=== PATIENT | female | born 1990 | race American Indian/Alaskan Native ===

== ENCOUNTER 2016-11-02 21:36 | Inpatient (IN) | payer OTHER ==
[2016-11-02 23:04] LABS: Urine Drugs of Abuse Note Disclamer
[2016-11-02 23:16] LABS: Bilirubin,Urine NEG (Negative); Blood,Urine NEG (Negative); Ketones,Urine TR mg/dL (Negative); Leukocyte Esterase,Urine NEG (Negative); Mucus,Urine FEW /HPF; Nitrite,Urine POS (Negative); Protein,Urine <15 mg/dL mg/dL (Negative)
[2016-11-03] MEDS ORDERED: LACTATED RINGERS 1,000 ML ONE (01:49)
[2016-11-03] MEDS ORDERED: COLACE PO PRN (02:15)
[2016-11-03] MEDS ORDERED: BENADRYL PO PRN (02:28)
[2016-11-03] MEDS ORDERED: ROBITUSSIN DM PO PRN (02:28)
[2016-11-03] MEDS ORDERED: MILK OF MAGNESIA PO PRN (02:28)
[2016-11-03] MEDS ORDERED: MYLICON PO PRN (02:28)
[2016-11-03] MEDS ORDERED: SUDAFED PO PRN (02:28)
[2016-11-03] MEDS ORDERED: ALUM-MAG HYDROX-SIMETH 200-200-20MG/5ML PO PRN (02:28)
[2016-11-03] MEDS ORDERED: DEEP SEA NS PRN (02:28)
[2016-11-03] MEDS ORDERED: ZOFRAN IV PRN (02:28)
--- NOTE | 2016-11-03 02:48 | History and Physical Report ---
History of Present Illness Date of examination: 11/03/16 Date of admission: 11/03/16 02:01 Chief complaint: Contractions, back pain, cough History of present illness: This is a 26-year-old female 4 para 11/22/2000 who presented to [address] [place] [address] complaining of contractions, back pain, coughing and general body aches and leaking fluid. She has an intrauterine at 38 weeks and 1 day by an ultrasound performed July 29, 2016 at 24 weeks and 2 days. She has not received any care with this . She was recently evaluated 10/21/2016 for back pain and contractions. She was not dilated and allow home at that time. On arrival to night patient had irregular contractions her cervix was closed. Patient states she felt that her water broke earlier yesterday as well as she started coughing yesterday. She felt she had a subjective fever but did not take her temperature. She denies any dysuria or problems urinating. Speculum exam in triage tonight was negative for pooling and ferning. She had prolonged monitoring triage and had no change from her cervical exam. Lab results revealed positive nitrites. Patient is admitted now for treatment of pyelonephritis. Past History Past Medical History: no pertinent history Past Surgical History: no surgical history LABOR AND DELIVERY REGISTERED NURSE History: denies: chlamydia, gonorrhea, hepatitis B, hepatitis C, herpes, HIV , syphilis, trichomonas Social history: full code. denies: smoking, alcohol abuse, prescription drug abuse, IV drug use - Obstetrical History Expected Date of Delivery: 11/16/16 Actual Gestation: 38 Week(s) 1 Day(s) : 4 (all ) Para: 3 Hx # Term Pregnancies: 2 Number of Pregnancies: 1 Number of Living Children: 3 Medications and Allergies Allergies Allergy/AdvReac Type Severity Reaction Status Date / Time No Known Allergies Allergy Verified 03/04/14 22:00 Home Medications Medication Instructions Recorded Confirmed Last Taken Type Nitrofurantoin Starke/M-Cryst 100 mg PO Q12HR #14 capsule 10/10/14 10/21/16 Unknown Rx [Macrobid] Nitrofurantoin Starke/M-Cryst 100 mg PO Q12HR #14 capsule 11/03/16 Unknown Rx [Macrobid CAP] Active Meds: Active Medications Nitrofurantoin Macrocrystals (Macrobid) 100 mg PO Q12HR EDMOND Review of Systems All systems: negative Constitutional: malaise Respiratory: cough Gastrointestinal: diarrhea Genitourinary: leakage of fluid, pelvic pain, contractions Musculoskeletal: low back pain Psychiatric: anxiety - Vital Signs Vital signs: Vital Signs Pulse BP Pulse Ox 117 H 120/64 97 11/02/16 21:55 11/02/16 21:55 11/02/16 21:55 Temp Pulse Resp BP Pulse Ox 91 H 134/69 98 11/03/16 02:03 11/03/16 02:03 11/03/16 02:03 - Physical Exam Breasts: Positive: deferred Lungs: Positive: Clear to auscultation, Normal air movement Abdomen: Positive: normal appearance. Negative: tenderness Genitourinary (Female): Positive: normal external genitalia, normal perenium Vulva: both: normal (once patient was placed in LDR 7 she again complained of leaking fluid. Sterile spec exam was again negative for any pooling. ) Vagina: Positive: normal moisture Uterus: Positive: enlarged Anus/Rectum: Positive: normal perianal skin Extremities: Positive: normal. Negative: tenderness, edema Deep Tendon Reflex Grade: Normal +2 - Obstetrical FHR: category 1 Uterine Contraction Monitor Mode: External Cervical Dilatation: 0 Cervical Effacement Percentage: 0 station: -2 Uterine Contraction Pattern: Irregular Results All other labs normal. Assessment and Plan - Patient Problems (1) 38 weeks gestation of Current Visit: Yes Status: Acute (2) No care in current Current Visit: Yes Status: Acute (3) Pyelonephritis affecting in third trimester Current Visit: Yes Status: Acute Plan to address problem: With fever and positive nitrites and urine most likely diagnosis is pyelonephritis. There is no obvious evidence of chorioamnionitis. We'll start Rocephin and IV hydration. Continuous monitoring. (4) Cough Current Visit: Yes Status: Acute Plan to address problem: Chest x-ray today.
[2016-11-03] MEDS: TYLENOL PO PRN ×2 (02:56→22:36)
[2016-11-03] MEDS ORDERED: MORPHINE IV ONE (02:57)
[2016-11-03] MEDS ORDERED: NACL 0.9% 1000 ML 1,000 ML IV SCH (03:00)
[2016-11-03] MEDS: AMBIEN PO PRN ×2 (03:15→22:37)
[2016-11-03] MEDS: ROCEPHIN/NS 1 GM/50 ML 50 ML IV SCH ×2 (04:20→14:24)
[2016-11-03 04:21] LABS: Basophils % (Auto) 0.3 % (0.0-1.8); Eosinophils % (Auto) 0.4 % (0.0-4.3); Hematocrit 26.5 % (30.3-42.9); Hemoglobin 8.6 gm/dl (10.1-14.3); Mean Corpuscular HGB Conc 32 % (30-34); Mean Corpuscular Hemoglobin 27 pg (28-32); Mean Corpuscular Volume 83 fl (79-97); Platelet Count 144 K/mm3 (140-440); Red Blood Count 3.21 M/mm3 (3.65-5.03); Red Cell Distribution Width 15.2 % (13.2-15.2); White Blood Count 8.7 K/mm3 (4.5-11.0)
[2016-11-03] MEDS: MACROBID PO SCH ×2 (04:23→16:00)
[2016-11-03 06:17] LABS: HIV-1 Antigen p24 Non React (Non React); HIVR-1/2 Ab Non React (Non React)
[2016-11-03] MEDS: STADOL IV PRN ×3 (08:03→17:35)
--- NOTE | 2016-11-03 08:30 | Admit Criteria Form ---
Admission Criteria Documentation: PYELONEPHRITIS, ACUTE Clinical Indications for Admission to Inpatient Care (Place 'X' for any and all applicable criteria): Admission is indicated for ANY ONE of the following 1,2,3,4,5 [ ]I. Outpatient treatment has failed or is not feasible (eg, multidrug- resistant organism).5 [X ]II. beyond 24 weeks' gestation6 [ ]III. Hemodynamic instability [ ]IV. Immunocompromised state (eg, AIDS, diabetes, sickle cell disease) [ ]V. Known renal or urologic abnormalities (eg, indwelling catheter, structural abnormalities, renal calculi, urinary stent, previous urologic surgery) [ ]. Condition that requires drainage procedure, including ANY ONE of the following: [ ]a) Urinary obstruction [ ]b) Pyelitis [ ]c) Pyonephrosis [ ]d) Renal or perinephric abscess [ ]e) Emphysematous pyelonephritis 7 [ ]VII. Inpatient admission required rather than observation care (Also use Pyelonephritis, Acute: Observation Care Criteria as appropriate) because of ANY ONE of the following: [ ]a) High fever or infection requiring inpatient admission as indicated by ANY ONE of [id number] [ ]A. Documented bacteremia [ ]B. Temp>104.9 [id number] (oral) [ ]C. Temp>103.10F (oral) or <96.80F (rectal) that does not respond to all emergency treatment [ ]b) Acute renal failure [ ]c) Other significant finding or clinical condition judged not to be within the scope of observation care [ ]d) IV fluid to replace significant ongoing (eg, for over 24hrs) losses (> 3 L/m2 per day) [ ]e) Other condition,treatment or monitoring requiring inpatient admission The original [facility] content created by [employer] has been revised. The portions of the content which have been revised are identified through the use of italic text or in bold, and [facility] has neither reviewed nor approved the modified material. All other unmodified content is copyright [facility]. Please see references footnoted in the original [facility] edition 2016 Admission Criteria Met: Yes
[2016-11-03] MEDS: LACTATED RINGERS 1,000 ML IV SCH (09:00)
--- NOTE | 2016-11-03 09:18 | XRay Report ---
AP CHEST: AP view of the chest demonstrates a normal mediastinal and cardiac contour with clear lungs and normal bony and soft tissue structures. IMPRESSION: Normal AP chest.
--- NOTE | 2016-11-03 09:44 | Ultrasound Report ---
Limited OB ultrasound: There is a motta gestation in cephalic position with a heart rate of 168 beats per minute. The MORALES is 21 cm which is within normal range. The estimated gestational age is 30 weeks one day. No other information supplied.
--- NOTE | 2016-11-03 10:17 | Progress Note ---
Assessment and Plan patient resting s/p medication administration. c/o flank pain and abd pain intermittantly with ctx but denies pain between ctx. FHT CAT 1. continue current management at this time. - Patient Problems (1) 38 weeks gestation of Current Visit: Yes Status: Acute (2) No care in current Current Visit: Yes Status: Acute Qualifiers: Trimester: third trimester Qualified Code(s): O09.33 - Supervision of with insufficient care, third trimester Plan to address problem: labs drawn (3) Pyelonephritis affecting in third trimester Current Visit: Yes Status: Acute Plan to address problem: continue antibiotic (4) Cough Current Visit: Yes Status: Acute Plan to address problem: chest xray normal Subjective - Subjective Date of service: 11/03/16 Principal diagnosis: IUP @ 38w1d, no pnc, pyleo Patient reports: movement normal, contractions Objective - Vital Signs Vital Signs: Vital Signs - 12hr 11/02/16 11/02/16 11/02/16 22:15 22:20 22:25 Temperature Pulse Rate 109 H 112 H 121 H Pulse Rate [ From Monitor] Respiratory Rate Blood Pressure Blood Pressure [Right Arm] O2 Sat by Pulse 100 99 100 Oximetry 11/02/16 11/02/16 11/02/16 22:30 22:35 22:40 Temperature Pulse Rate 110 H 110 H 119 H Pulse Rate [ From Monitor] Respiratory Rate Blood Pressure Blood Pressure [Right Arm] O2 Sat by Pulse 99 100 100 Oximetry 11/02/16 11/02/16 11/02/16 22:45 22:50 22:55 Temperature Pulse Rate 112 H 106 H 112 H Pulse Rate [ From Monitor] Respiratory Rate Blood Pressure Blood Pressure [Right Arm] O2 Sat by Pulse 98 98 99 Oximetry 11/02/16 11/02/16 11/02/16 23:00 23:05 23:10 Temperature Pulse Rate 103 H 105 H 114 H Pulse Rate [ From Monitor] Respiratory Rate Blood Pressure Blood Pressure [Right Arm] O2 Sat by Pulse 97 99 100 Oximetry 11/02/16 11/02/16 11/02/16 23:14 23:15 23:20 Temperature Pulse Rate 100 H 108 H Pulse Rate [ From Monitor] Respiratory Rate Blood Pressure Blood Pressure [Right Arm] O2 Sat by Pulse 8 L 94 97 Oximetry 11/02/16 11/02/1617 23:25 23:30 23:35 Temperature Pulse Rate 112 H 108 H 110 H Pulse Rate [ From Monitor] Respiratory Rate Blood Pressure Blood Pressure [Right Arm] O2 Sat by Pulse 98 98 100 Oximetry 11/02/16 11/02/16 11/02/16 23:40 23:45 23:50 Temperature Pulse Rate 113 H 120 H 111 H Pulse Rate [ From Monitor] Respiratory Rate Blood Pressure Blood Pressure [Right Arm] O2 Sat by Pulse 98 98 99 Oximetry 11/02/16 11/03/16 11/03/16 23:55 00:00 00:05 Temperature Pulse Rate 124 H 107 H 112 H Pulse Rate [ From Monitor] Respiratory Rate Blood Pressure Blood Pressure [Right Arm] O2 Sat by Pulse 97 97 97 Oximetry 11/03/16 11/03/16 11/03/16 00:10 00:15 00:53 Temperature Pulse Rate 119 H 122 H 122 H Pulse Rate [ From Monitor] Respiratory Rate Blood Pressure Blood Pressure [Right Arm] O2 Sat by Pulse 98 97 98 Oximetry 11/03/16 11/03/16 11/03/16 00:58 01:03 01:08 Temperature Pulse Rate 118 H 108 H 108 H Pulse Rate [ From Monitor] Respiratory Rate Blood Pressure Blood Pressure [Right Arm] O2 Sat by Pulse 98 100 100 Oximetry 11/03/16 11/03/16 11/03/16 01:13 01:18 01:23 Temperature Pulse Rate 115 H 114 H 119 H Pulse Rate [ From Monitor] Respiratory Rate Blood Pressure Blood Pressure [Right Arm] O2 Sat by Pulse 100 100 100 Oximetry 11/03/16 11/03/16 11/03/16 01:28 01:33 01:38 Temperature Pulse Rate 108 H 120 H 133 H Pulse Rate [ From Monitor] Respiratory Rate Blood Pressure Blood Pressure [Right Arm] O2 Sat by Pulse 100 100 100 Oximetry 11/03/16 11/03/16 11/03/16 01:43 01:48 02:03 Temperature Pulse Rate 133 H 109 H 91 H Pulse Rate [ From Monitor] Respiratory Rate Blood Pressure 134/69 Blood Pressure [Right Arm] O2 Sat by Pulse 100 100 98 Oximetry 11/03/16 11/03/16 11/03/16 02:25 02:42 02:43 Temperature 100.0 F H Pulse Rate 114 H 126 H Pulse Rate [ 114 H From Monitor] Respiratory 22 Rate Blood Pressure 105/59 Blood Pressure 105/59 [Right Arm] O2 Sat by Pulse 92 Oximetry 11/03/16 11/03/16 11/03/16 02:48 02:49 02:53 Temperature 102.0 F H Pulse Rate 119 H 116 H 116 H Pulse Rate [ From Monitor] Respiratory Rate Blood Pressure Blood Pressure [Right Arm] O2 Sat by Pulse 96 92 89 Oximetry 11/03/16 11/03/16 11/03/16 02:56 02:58 03:03 Temperature Pulse Rate 106 H 117 H Pulse Rate [ From Monitor] Respiratory 22 Rate Blood Pressure Blood Pressure [Right Arm] O2 Sat by Pulse 97 99 Oximetry 11/03/16 11/03/16 11/03/16 03:08 03:09 03:13 Temperature Pulse Rate 111 H 111 H 112 H Pulse Rate [ From Monitor] Respiratory 20 Rate Blood Pressure 102/57 Blood Pressure [Right Arm] O2 Sat by Pulse 100 100 Oximetry 11/03/16 11/03/16 11/03/16 03:18 03:23 03:28 Temperature Pulse Rate 113 H 116 H 115 H Pulse Rate [ From Monitor] Respiratory Rate Blood Pressure Blood Pressure [Right Arm] O2 Sat by Pulse 100 100 99 Oximetry 11/03/16 11/03/16 11/03/16 03:33 03:38 03:39 Temperature Pulse Rate 115 H 110 H 110 H Pulse Rate [ From Monitor] Respiratory Rate Blood Pressure 134/60 Blood Pressure [Right Arm] O2 Sat by Pulse 98 97 Oximetry 11/03/16 11/03/16 11/03/16 03:43 03:48 03:53 Temperature Pulse Rate 120 H 124 H 122 H Pulse Rate [ From Monitor] Respiratory Rate Blood Pressure Blood Pressure [Right Arm] O2 Sat by Pulse 97 97 99 Oximetry 11/03/16 11/03/16 11/03/16 03:58 04:00 04:03 Temperature 99.8 F H Pulse Rate 116 H 120 H Pulse Rate [ From Monitor] Respiratory Rate Blood Pressure Blood Pressure [Right Arm] O2 Sat by Pulse 99 99 Oximetry 11/03/16 11/03/16 11/03/16 04:08 04:13 04:18 Temperature Pulse Rate 120 H 115 H 103 H Pulse Rate [ From Monitor] Respiratory Rate Blood Pressure Blood Pressure [Right Arm] O2 Sat by Pulse 98 98 97 Oximetry 11/03/16 11/03/16 11/03/16 04:23 04:28 04:33 Temperature Pulse Rate 122 H 113 H 121 H Pulse Rate [ From Monitor] Respiratory Rate Blood Pressure Blood Pressure [Right Arm] O2 Sat by Pulse 97 97 97 Oximetry 11/03/16 11/03/16 11/03/16 04:38 04:43 04:48 Temperature Pulse Rate 120 H 122 H 120 H Pulse Rate [ From Monitor] Respiratory Rate Blood Pressure 99/56 Blood Pressure [Right Arm] O2 Sat by Pulse 97 97 97 Oximetry 11/03/16 11/03/16 11/03/16 04:53 04:59 05:04 Temperature Pulse Rate 117 H 130 H 122 H Pulse Rate [ From Monitor] Respiratory Rate Blood Pressure Blood Pressure [Right Arm] O2 Sat by Pulse 97 96 96 Oximetry 11/03/16 11/03/16 11/03/16 05:09 05:14 05:15 Temperature 98.8 F Pulse Rate 115 H 114 H Pulse Rate [ From Monitor] Respiratory Rate Blood Pressure 95/51 Blood Pressure [Right Arm] O2 Sat by Pulse 95 96 Oximetry 11/03/16 11/03/16 11/03/16 05:19 05:24 05:29 Temperature Pulse Rate 109 H 120 H 115 H Pulse Rate [ From Monitor] Respiratory Rate Blood Pressure Blood Pressure [Right Arm] O2 Sat by Pulse 96 96 96 Oximetry 11/03/16 11/03/16 11/03/16 05:34 05:39 05:40 Temperature Pulse Rate 109 H 116 H 114 H Pulse Rate [ From Monitor] Respiratory Rate Blood Pressure 94/51 Blood Pressure [Right Arm] O2 Sat by Pulse 96 98 Oximetry 11/03/16 11/03/16 11/03/16 05:44 05:49 05:54 Temperature Pulse Rate 113 H 116 H 114 H Pulse Rate [ From Monitor] Respiratory Rate Blood Pressure Blood Pressure [Right Arm] O2 Sat by Pulse 97 96 96 Oximetry 11/03/16 11/03/16 11/03/16 05:59 06:04 06:09 Temperature Pulse Rate 111 H 115 H 104 H Pulse Rate [ From Monitor] Respiratory Rate Blood Pressure Blood Pressure [Right Arm] O2 Sat by Pulse 94 95 95 Oximetry 11/03/16 11/03/16 11/03/16 06:10 06:14 06:15 Temperature Pulse Rate 110 H 132 H 105 H Pulse Rate [ From Monitor] Respiratory Rate Blood Pressure 98/55 Blood Pressure [Right Arm] O2 Sat by Pulse 94 95 94 Oximetry 11/03/16 11/03/16 11/03/16 06:19 06:20 06:24 Temperature Pulse Rate 122 H 120 H 117 H Pulse Rate [ From Monitor] Respiratory Rate Blood Pressure Blood Pressure [Right Arm] O2 Sat by Pulse 94 93 96 Oximetry 11/03/16 11/03/16 11/03/16 06:25 06:29 06:34 Temperature Pulse Rate 119 H 118 H 125 H Pulse Rate [ From Monitor] Respiratory Rate Blood Pressure Blood Pressure [Right Arm] O2 Sat by Pulse 94 92 91 Oximetry 11/03/16 11/03/16 11/03/16 06:39 06:44 06:49 Temperature Pulse Rate 113 H 126 H 123 H Pulse Rate [ From Monitor] Respiratory Rate Blood Pressure 103/56 Blood Pressure [Right Arm] O2 Sat by Pulse 91 91 93 Oximetry 11/03/16 11/03/16 11/03/16 06:54 07:08 07:39 Temperature Pulse Rate 124 H 117 H 118 H Pulse Rate [ From Monitor] Respiratory Rate Blood Pressure 103/55 91/48 Blood Pressure [Right Arm] O2 Sat by Pulse 97 Oximetry 11/03/16 11/03/16 11/03/16 07:48 07:59 08:04 Temperature Pulse Rate 121 H 125 H 116 H Pulse Rate [ From Monitor] Respiratory Rate Blood Pressure 110/57 Blood Pressure [Right Arm] O2 Sat by Pulse 98 95 Oximetry 11/03/16 11/03/16 11/03/16 08:09 08:22 08:24 Temperature Pulse Rate 113 H 115 H 117 H Pulse Rate [ From Monitor] Respiratory Rate Blood Pressure 114/61 98/56 Blood Pressure [Right Arm] O2 Sat by Pulse 94 Oximetry 11/03/16 08:38 Temperature Pulse Rate 116 H Pulse Rate [ From Monitor] Respiratory Rate Blood Pressure 93/50 Blood Pressure [Right Arm] O2 Sat by Pulse Oximetry - Exam Breasts: normal Cardiovascular: Regular rate Lungs: Clear to auscultation, Normal air movement Abdomen: Present: normal appearance, soft Vulva: both: normal Uterus: Present: firm FHR: category 1 Uterine Contraction Monitor Mode: External Uterine Contraction Pattern: Irregular Uterine Tone Measurement Phase: Contraction Uterine Contraction Intensity: Mild Extremities: normal Deep Tendon Reflex Grade: Normal +2 - Labs Labs: Abnormal Labs 11/03/16 03:20 RBC 3.21 L Hgb 8.6 L Hct 26.5 L MCH 27 L Lymph % (Auto) 5.1 L Marshall % (Auto) 8.2 H Lymph # 0.4 L Seg Neutrophils % 86.0 H Laboratory Results - last 24 hr 11/02/16 11/02/16 11/03/16 22:40 22:40 03:20 WBC 8.7 RBC 3.21 L Hgb 8.6 L Hct 26.5 L MCV 83 MCH 27 L MCHC 32 RDW 15.2 Plt Count 144 Lymph % (Auto) 5.1 L Marshall % (Auto) 8.2 H Eos % (Auto) 0.4 Baso % (Auto) 0.3 Lymph # 0.4 L Marshall # 0.7 Eos # 0.0 Baso # 0.0 Seg Neutrophils % 86.0 H Seg Neutrophils # 7.5 Sickle Cell Screen Negative Urine Color Gisel Urine Turbidity Clear Urine pH 6.0 Ur Specific [place] 1.014 Urine Protein <15 mg/dl Urine Glucose (UA) Neg Urine Ketones Tr Urine Blood Neg Urine Nitrite Pos Urine Bilirubin Neg Urine Urobilinogen 4.0 Ur Leukocyte Esterase Neg Urine WBC (Auto) 2.0 Urine RBC (Auto) 2.0 U Epithel Cells (Auto) 1.0 Urine Mucus Few Urine Opiates Screen Presumptive negative Urine Methadone Screen Presumptive negative Ur Barbiturates Screen Presumptive negative Ur Phencyclidine Scrn Presumptive negative Ur Amphetamines Screen Presumptive negative U Benzodiazepines Scrn Presumptive negative Urine Cocaine Screen Presumptive negative U Marijuana (THC) Screen Presumptive negative Drugs of Abuse Note Disclamer Hep Bs Antigen Hepatitis C Antibody HIV 1&2 Antibody Rapid HIV P24 Antigen Rubella IgG Antibody Blood Type Antibody Screen 11/03/16 11/03/16 11/03/16 03:20 03:20 03:20 WBC RBC Hgb Hct MCV MCH MCHC RDW Plt Count Lymph % (Auto) Marshall % (Auto) Eos % (Auto) Baso % (Auto) Lymph # Marshall # Eos # Baso # Seg Neutrophils % Seg Neutrophils # Sickle Cell Screen Urine Color Urine Turbidity Urine pH Ur Specific [place] Urine Protein Urine Glucose (UA) Urine Ketones Urine Blood Urine Nitrite Urine Bilirubin Urine Urobilinogen Ur Leukocyte Esterase Urine WBC (Auto) Urine RBC (Auto) U Epithel Cells (Auto) Urine Mucus Urine Opiates Screen Urine Methadone Screen Ur Barbiturates Screen Ur Phencyclidine Scrn Ur Amphetamines Screen U Benzodiazepines Scrn Urine Cocaine Screen U Marijuana (THC) Screen Drugs of Abuse Note Hep Bs Antigen Non-reactive Hepatitis C Antibody Non-reactive HIV 1&2 Antibody Rapid HIV P24 Antigen Rubella IgG Antibody Immune Blood Type O POSITIVE Antibody Screen Negative 11/03/16 03:20 WBC RBC Hgb Hct MCV MCH MCHC RDW Plt Count Lymph % (Auto) Marshall % (Auto) Eos % (Auto) Baso % (Auto) Lymph # Marshall # Eos # Baso # Seg Neutrophils % Seg Neutrophils # Sickle Cell Screen Urine Color Urine Turbidity Urine pH Ur Specific [place] Urine Protein Urine Glucose (UA) Urine Ketones Urine Blood Urine Nitrite Urine Bilirubin Urine Urobilinogen Ur Leukocyte Esterase Urine WBC (Auto) Urine RBC (Auto) U Epithel Cells (Auto) Urine Mucus Urine Opiates Screen Urine Methadone Screen Ur Barbiturates Screen Ur Phencyclidine Scrn Ur Amphetamines Screen U Benzodiazepines Scrn Urine Cocaine Screen U Marijuana (THC) Screen Drugs of Abuse Note Hep Bs Antigen Hepatitis C Antibody HIV 1&2 Antibody Rapid Non react HIV P24 Antigen Non react Rubella IgG Antibody Blood Type Antibody Screen
[2016-11-03] MEDS: PRENATAL VITAMIN PO SCH (11:56)
--- NOTE | 2016-11-03 19:00 | Progress Note ---
Assessment and Plan Patient resting, c/o to complain of same flank and back pain. tracing reviewed with CN, varibles noted in fht - unable to determine if they were actual variables or if efm was tracing maternal HR (some appear to be related to maternal movement on toco). Pulse ox applied to monitor maternal HR. SVE closed , no vag bleeding or leaking. Continue current plan of care. - Patient Problems (1) 38 weeks gestation of Current Visit: Yes Status: Acute (2) No care in current Current Visit: Yes Status: Acute Qualifiers: Trimester: third trimester Qualified Code(s): O09.33 - Supervision of with insufficient care, third trimester (3) Pyelonephritis affecting in third trimester Current Visit: Yes Status: Acute (4) Cough Current Visit: Yes Status: Acute Subjective - Subjective Date of service: 11/03/16 Principal diagnosis: IUP @ 38w1d, no pnc, pyleo Patient reports: movement normal, contractions Objective - Vital Signs Vital Signs: Vital Signs - 12hr 11/03/16 11/03/16 11/03/16 07:08 07:39 07:48 Temperature Pulse Rate 117 H 118 H 121 H Pulse Rate [ From Monitor] Respiratory Rate Blood Pressure 103/55 91/48 110/57 Blood Pressure [Right Arm] O2 Sat by Pulse Oximetry 11/03/16 11/03/16 11/03/16 07:59 08:00 08:04 Temperature 115 F H Pulse Rate 125 H 116 H Pulse Rate [ From Monitor] Respiratory 20 Rate Blood Pressure Blood Pressure 110/57 [Right Arm] O2 Sat by Pulse 98 95 95 Oximetry 11/03/16 11/03/16 11/03/16 08:09 08:22 08:24 Temperature Pulse Rate 113 H 115 H 117 H Pulse Rate [ From Monitor] Respiratory Rate Blood Pressure 114/61 98/56 Blood Pressure [Right Arm] O2 Sat by Pulse 94 Oximetry 11/03/16 11/03/16 11/03/16 08:38 10:48 11:08 Temperature Pulse Rate 116 H 120 H 117 H Pulse Rate [ From Monitor] Respiratory Rate Blood Pressure 93/50 113/64 93/58 Blood Pressure [Right Arm] O2 Sat by Pulse Oximetry 11/03/16 11/03/16 11/03/16 11:39 11:51 12:09 Temperature 99.5 F Pulse Rate 118 H 116 H Pulse Rate [ 101 H From Monitor] Respiratory 20 Rate Blood Pressure 105/58 86/50 Blood Pressure 113/64 [Right Arm] O2 Sat by Pulse Oximetry 11/03/16 11/03/16 11/03/16 12:39 13:09 13:39 Temperature Pulse Rate 105 H 107 H 102 H Pulse Rate [ From Monitor] Respiratory Rate Blood Pressure 95/51 93/50 109/55 Blood Pressure [Right Arm] O2 Sat by Pulse Oximetry 11/03/16 11/03/16 11/03/16 14:10 14:39 15:09 Temperature Pulse Rate 118 H 113 H 126 H Pulse Rate [ From Monitor] Respiratory Rate Blood Pressure 100/53 102/53 86/46 Blood Pressure [Right Arm] O2 Sat by Pulse Oximetry 11/03/16 11/03/16 11/03/16 15:22 15:39 16:10 Temperature 98 F Pulse Rate 111 H 106 H 109 H Pulse Rate [ 111 H From Monitor] Respiratory 16 Rate Blood Pressure 97/55 82/43 85/48 Blood Pressure 97/55 [Right Arm] O2 Sat by Pulse Oximetry 11/03/16 16:39 Temperature Pulse Rate 107 H Pulse Rate [ From Monitor] Respiratory Rate Blood Pressure 94/54 Blood Pressure [Right Arm] O2 Sat by Pulse Oximetry - Exam Breasts: normal Cardiovascular: Regular rate Lungs: Clear to auscultation, Normal air movement Abdomen: Present: normal appearance, soft Vulva: both: normal Uterus: Present: normal, firm FHR: category 2 Uterine Contraction Monitor Mode: External Cervical Dilatation: 0 (external os 1, internal os feels closed) Cervical Effacement Percentage: 0 station: -4 Uterine Contraction Frequency (min): 3-7 Uterine Contraction Duration: 60-70 Uterine Contraction Pattern: Irregular Uterine Tone Measurement Phase: Resting Uterine Contraction Intensity: Mild Extremities: normal Deep Tendon Reflex Grade: Normal +2 - Labs Labs: Abnormal Labs 11/03/16 03:20 RBC 3.21 L Hgb 8.6 L Hct 26.5 L MCH 27 L Lymph % (Auto) 5.1 L Arroyo % (Auto) 8.2 H Lymph # 0.4 L Seg Neutrophils % 86.0 H Laboratory Results - last 24 hr 11/02/16 11/02/16 11/03/16 22:40 22:40 03:20 WBC 8.7 RBC 3.21 L Hgb 8.6 L Hct 26.5 L MCV 83 MCH 27 L MCHC 32 RDW 15.2 Plt Count 144 Lymph % (Auto) 5.1 L [place] % (Auto) 8.2 H Eos % (Auto) 0.4 Baso % (Auto) 0.3 Lymph # 0.4 L [place] # 0.7 Eos # 0.0 Baso # 0.0 Seg Neutrophils % 86.0 H Seg Neutrophils # 7.5 Sickle Cell Screen Negative Urine Color Gisel Urine Turbidity Clear Urine pH 6.0 Ur Specific [place] 1.014 Urine Protein <15 mg/dl Urine Glucose (UA) Neg Urine Ketones Tr Urine Blood Neg Urine Nitrite Pos Urine Bilirubin Neg Urine Urobilinogen 4.0 Ur Leukocyte Esterase Neg Urine WBC (Auto) 2.0 Urine RBC (Auto) 2.0 U Epithel Cells (Auto) 1.0 Urine Mucus Few Urine Opiates Screen Presumptive negative Urine Methadone Screen Presumptive negative Ur Barbiturates Screen Presumptive negative Ur Phencyclidine Scrn Presumptive negative Ur Amphetamines Screen Presumptive negative U Benzodiazepines Scrn Presumptive negative Urine Cocaine Screen Presumptive negative U Marijuana (THC) Screen Presumptive negative Drugs of Abuse Note Disclamer RPR Hep Bs Antigen Hepatitis C Antibody HIV 1&2 Antibody Rapid HIV P24 Antigen Rubella IgG Antibody Blood Type Antibody Screen 11/03/16 11/03/16 11/03/16 03:20 03:20 03:20 WBC RBC Hgb Hct MCV MCH MCHC RDW Plt Count Lymph % (Auto) [place] % (Auto) Eos % (Auto) Baso % (Auto) Lymph # [place] # Eos # Baso # Seg Neutrophils % Seg Neutrophils # Sickle Cell Screen Urine Color Urine Turbidity Urine pH Ur Specific [place] Urine Protein Urine Glucose (UA) Urine Ketones Urine Blood Urine Nitrite Urine Bilirubin Urine Urobilinogen Ur Leukocyte Esterase Urine WBC (Auto) Urine RBC (Auto) U Epithel Cells (Auto) Urine Mucus Urine Opiates Screen Urine Methadone Screen Ur Barbiturates Screen Ur Phencyclidine Scrn Ur Amphetamines Screen U Benzodiazepines Scrn Urine Cocaine Screen U Marijuana (THC) Screen Drugs of Abuse Note RPR Hep Bs Antigen Non-reactive Hepatitis C Antibody Non-reactive HIV 1&2 Antibody Rapid HIV P24 Antigen Rubella IgG Antibody Immune Blood Type O POSITIVE Antibody Screen Negative 11/03/16 11/03/16 03:20 03:20 WBC RBC Hgb Hct MCV MCH MCHC RDW Plt Count Lymph % (Auto) [place] % (Auto) Eos % (Auto) Baso % (Auto) Lymph # [place] # Eos # Baso # Seg Neutrophils % Seg Neutrophils # Sickle Cell Screen Urine Color Urine Turbidity Urine pH Ur Specific [place] Urine Protein Urine Glucose (UA) Urine Ketones Urine Blood Urine Nitrite Urine Bilirubin Urine Urobilinogen Ur Leukocyte Esterase Urine WBC (Auto) Urine RBC (Auto) U Epithel Cells (Auto) Urine Mucus Urine Opiates Screen Urine Methadone Screen Ur Barbiturates Screen Ur Phencyclidine Scrn Ur Amphetamines Screen U Benzodiazepines Scrn Urine Cocaine Screen U Marijuana (THC) Screen Drugs of Abuse Note RPR Nonreactive Hep Bs Antigen Hepatitis C Antibody HIV 1&2 Antibody Rapid Non react HIV P24 Antigen Non react Rubella IgG Antibody Blood Type Antibody Screen
[2016-11-04] MEDS: STADOL IV PRN ×2 (02:27→07:55)
[2016-11-04] MEDS: LACTATED RINGERS 1,000 ML IV SCH (02:29)
[2016-11-04] MEDS: MACROBID PO SCH ×2 (04:13→10:09)
[2016-11-04] MEDS: ROCEPHIN/NS 1 GM/50 ML 50 ML IV SCH (05:10)
[2016-11-04] MEDS: TYLENOL PO PRN (08:09)
[2016-11-04] MEDS: PRENATAL VITAMIN PO SCH (10:10)
--- NOTE | 2016-11-04 10:52 | Discharge Summary ---
Providers - Providers Date of Admission: 11/03/16 02:01 Date of discharge: 11/04/16 Attending physician: DEVAN MUSA 11/03/16 Consult to Case Management [CONS] Routine Services Needed at Discharge: [employer] Sand[employer]aster Primary care physician: LARISA LAM MD Hospitalization Condition: Good Hospital course: The H&P for details. Patient was admitted and diagnosed with pyelonephritis. Patient received IV antibodies treatment with decrease in the pain. Also patient had decrease in her temperature to under 100.4. Patient blood cultures returned negative. Patient the discharge with outpatient oral antibodies and oral analgesia with instructions to follow-up in office. Disposition: DISCHARGED TO HOME OR SELFCARE - Discharge Diagnoses (1) Pyelonephritis affecting in third trimester Status: Acute Core Measure Documentation - Palliative Care Palliative Care/ Comfort Measures: Not Applicable - Core Measures Any of the following diagnoses?: none Exam - Constitutional Vitals: Temp Pulse Resp BP Pulse Ox 100.1 F H 129 H 18 95/53 96 11/04/16 07:51 11/04/16 07:52 11/04/16 07:51 11/04/16 07:52 11/03/16 20:45 General appearance: Present: no acute distress - Respiratory Respiratory effort: normal - Cardiovascular Rhythm: regular - Extremities Extremities: no ischemia - Abdominal General gastrointestinal: Present: soft Female genitourinary: Present: deferred - Rectal Rectal Exam: deferred Plan Activity: advance as tolerated Diet: regular Additional Instructions: Patient call for any signs and symptoms of labor. Nausea vomiting fever or chills. And follow-up in my TELEPHONE SURVEYOR office in 1 week. Follow up with: PRIMARY MD GENARO [Primary Care Provider] - 7 Days Forms: [facility] Discharge Summary Prescriptions: Acetaminophen/Codeine [Tylenol #3] 1 tab PO Q4HR PRN #20 tablet PRN Reason: Pain Nitrofurantoin [place]/M-Cryst [Macrobid CAP] 100 mg PO Q12HR #14 capsule Nitrofurantoin Miller/M-Cryst [Macrobid CAP] 100 mg PO Q12HR #14 capsule
[2016-11-04 12:40] VITALS: BP 97/47
[2016-11-04] MEDS ORDERED: VISTARIL PO ONE (13:20)
== END 2016-11-04 13:35 | disposition home or self-care (01) | DRG 781 ==
LOC: TRG 21:36 → OBSVTOIN 11-03 02:01 → TRG 11-03 02:01 → LD 11-03 02:01
PROVIDERS: ADMIT Obstetrics & Gynecology; ATTEND Obstetrics & Gynecology
DX: O23.03 Infections of kidney in pregnancy, third trimester (principal); O26.893 Other specified pregnancy related conditions, third trimester; R05 Cough; O09.33 Supervision of pregnancy with insufficient antenatal care, third trimester; Z3A.38 38 weeks gestation of pregnancy; Z79.899 Other long term (current) drug therapy
CPT/HCPCS: 36415; 71020; 76815; 80307; 81001; 85025; 85660; 86592; 86706; 86762; 86803; 86850; 86900; 86901; 87040; 87086; 87116; 87806; J0595; J0696; J2270; J7030; J7120; Q0177

== ENCOUNTER 2016-11-12 17:51 | Inpatient (IN) | payer MEDICAID ==
[2016-11-12] MEDS ORDERED: LACTATED RINGERS 1,000 ML ONE (18:29)
[2016-11-12] MEDS ORDERED: STADOL ONE (18:29)
[2016-11-12] MEDS ORDERED: POLYCILLIN/NS 2 GM/100 ML 100 ML IV ONE ×2 (18:46→18:48)
[2016-11-12] MEDS ORDERED: STADOL IV PRN (18:47)
[2016-11-12] MEDS ORDERED: LACTATED RINGERS 1,000 ML IV SCH (19:00)
[2016-11-12 19:09] LABS: Basophils % (Auto) 0.1 % (0.0-1.8); Eosinophils % (Auto) 0.7 % (0.0-4.3); Hematocrit 26.8 % (30.3-42.9); Mean Corpuscular HGB Conc 34 % (30-34); Mean Corpuscular Hemoglobin 27 pg (28-32); Mean Corpuscular Volume 81 fl (79-97); Platelet Count 163 K/mm3 (140-440); Red Blood Count 3.29 M/mm3 (3.65-5.03); Red Cell Distribution Width 15.5 % (13.2-15.2); White Blood Count 8.5 K/mm3 (4.5-11.0)
[2016-11-12] MEDS ORDERED: PITOCin/NS 20 UNIT/1000ML DRIP 1,000 ML IV ONE (20:23)
--- NOTE | 2016-11-12 20:34 | Procedure Note ---
OB Delivery Note - Delivery Date of Delivery: 11/12/16 (7-14oz Female @ 2020) Surgeon: GRAHAM WEINSTEIN Estimated blood loss: 100cc - Vaginal Delivery presentation: vertex Delivery position: OA Intrapartum events: no care Delivery induction: none Delivery monitor: external FHT, external uterine Route of delivery: Delivery placenta: spontaneous Delivery cord: 3 umbilical vessels Episiotomy: none Delivery laceration: 1st degree (not bleeding, approximates well, not repaired) Anesthesia: none - A at 1 minute: 8 at 5 minutes: 9 Infant Gender: Female (Called by RN, reporting patient complete. viable female, declined Skin to skin. Cord blood collected. Spont. placenta, Pitocin infusing. Laceration not bleeding, approximates well, not reparied)
--- NOTE | 2016-11-12 20:35 | History and Physical Report ---
History of Present Illness Date of examination: 11/12/16 Date of admission: 11/12/16 18:07 History of present illness: EDC 11/16/16 @ 39.3 weeks gestation by hospital U/S, presented for labor. Denies any medical history other than a blood transfusion for PPH. Denies receiving any care Past History Past Medical History: no pertinent history, blood transfusion (PPh) Family/Genetic History: none Social history: no significant social history - Obstetrical History Expected Date of Delivery: 11/16/16 Actual Gestation: 39 Week(s) 3 Day(s) : 4 Para: 4 Number of Living Children: 4 Medications and Allergies Allergies Allergy/AdvReac Type Severity Reaction Status Date / Time No Known Allergies Allergy Verified 03/04/14 22:00 Home Medications Medication Instructions Recorded Confirmed Last Taken Type Nitrofurantoin [place]/M-Cryst 100 mg PO Q12HR #14 capsule 10/10/14 11/03/16 Unknown Rx [Macrobid] Nitrofurantoin [place]/M-Cryst 100 mg PO Q12HR #14 capsule 11/03/16 Unknown Rx [Macrobid CAP] Acetaminophen/Codeine [Tylenol #3] 1 tab PO Q4HR PRN #20 tablet 11/04/16 Unknown Rx Nitrofurantoin [place]/M-Cryst 100 mg PO Q12HR #14 capsule 11/04/16 Unknown Rx [Macrobid CAP] Active Meds: Active Medications Butorphanol Tartrate (Stadol) 2 mg IV Q2H PRN PRN Reason: Labor Pain Last Admin: 11/12/16 18:30 Dose: 2 mg Lactated Ringer's (Lactated Ringers) 1,000 mls @ 125 mls/hr IV DIRECT EDMOND Last Admin: 11/12/16 18:25 Dose: 125 mls/hr Review of Systems All systems: negative - Vital Signs Vital signs: Vital Signs Pulse Pulse Ox 96 H 98 11/12/16 17:59 11/12/16 17:59 Temp Pulse Resp BP Pulse Ox 89 128/80 95 11/12/16 20:01 11/12/16 20:01 11/12/16 18:00 - Physical Exam Genitourinary (Female): Positive: normal external genitalia, perineal/vulvar lesions (first degree vaginal laceration) Vagina: Positive: normal moisture Results Result Diagrams: 11/12/16 18:25 Abnormal lab results 11/12/16 Range/Units 18:25 RBC 3.29 L (3.65-5.03) M/mm3 Hgb 9.0 L (10.1-14.3) gm/dl Hct 26.8 L (30.3-42.9) % MCH 27 L (28-32) pg RDW 15.5 H (13.2-15.2) % Seg Neutrophils % 73.9 H (40.0-70.0) % All other labs normal. Assessment and Plan A: Recovery, S/P viable female infant No care P: Routine orders OB labs
[2016-11-12] MEDS ORDERED: DULCOLAX PR PRN (20:44)
[2016-11-12] MEDS ORDERED: TYLENOL PO PRN (20:44)
[2016-11-12] MEDS ORDERED: BENADRYL PO PRN (20:44)
[2016-11-12] MEDS ORDERED: LANSINOH TP PRN (20:44)
[2016-11-12] MEDS ORDERED: PHENERGAN PO PRN (20:44)
[2016-11-12] MEDS ORDERED: PHENERGAN PR PRN (20:44)
[2016-11-12] MEDS ORDERED: DERMOPLAST TP PRN (20:44)
[2016-11-12] MEDS ORDERED: TUCKS PAD TP PRN (20:44)
[2016-11-12] MEDS ORDERED: MILK OF MAGNESIA PO PRN (20:44)
[2016-11-12] MEDS ORDERED: ZOFRAN IV PRN (20:44)
[2016-11-12] MEDS ORDERED: SODIUM CHLORIDE FLUSH SYRINGE 10 ML IV PRN (21:00)
[2016-11-12] MEDS: MOTRIN PO SCH (21:13)
[2016-11-12] MEDS: COLACE PO SCH (22:39)
[2016-11-12] MEDS: NORCO 5/325 PO PRN (22:39)
[2016-11-12] MEDS: FEOSOL PO SCH (22:39)
[2016-11-12 23:12] LABS: Urine Drugs of Abuse Note Disclamer
[2016-11-13] MEDS: MOTRIN PO SCH ×3 (05:21→18:15)
--- NOTE | 2016-11-13 07:54 | Progress Note ---
Assessment and Plan A: ~ 12 hrs s/p at term, no care, asymptomatic anemia P: Routine care. Follow up H/H and HIV status. Anticipate discharge on Wed AM. Subjective - Subjective Date of service: 11/13/16 Principal diagnosis: s/p at term, no care Interval history: Pt reports passing a clot when she got up after lying supine all night. Otherwise she has no complaints. Patient reports: appetite normal, voiding normally, pain well controlled, ambulating normally, no dizzy ambulation, no nauseated [place]: doing well Objective - Vital Signs Latest vital signs: Vital Signs Temp Pulse Pulse Resp BP BP Pulse Ox 11/13/16 04:00 98.2 F 58 L 18 117/70 11/12/16 23:10 98.3 F 57 L 16 97/53 11/12/16 21:15 65 115/73 11/12/16 21:13 18 11/12/16 21:00 80 113/68 11/12/16 20:45 75 108/64 11/12/16 20:37 80 103/59 11/12/16 20:01 89 128/80 11/12/16 19:16 78 109/62 11/12/16 19:00 74 102/59 11/12/16 18:46 73 108/56 11/12/16 18:37 88 109/63 11/12/16 18:00 112 H 97/67 95 11/12/16 17:59 96 H 98 Intake and Output 11/12/16 11/13/16 11/13/16 22:59 06:59 14:59 Intake Total 100 795 Output Total 400 800 Balance -300 -5 Intake: IV 435 PITOCin/NS 20 UNIT/1000ML 435 DRIP 1,000 ML As IV .STK -MED ONE Rx#:[id number] Oral 100 360 Output: Urine 400 800 Void 400 800 Other: Total, Intake Amount 100 360 Total, Output Amount 400 800 Weight 70.76 kg Estimated Blood Loss 100 - Exam Breasts: Present: deferred Cardiovascular: Present: Regular rate Lungs: Present: Clear to auscultation Abdomen: Present: soft Uterus: Present: normal, fundal height at umbilicus Extremities: Present: normal. Absent: edema - Labs Labs: Abnormal lab results 11/12/16 Range/Units 18:25 RBC 3.29 L (3.65-5.03) M/mm3 Hgb 9.0 L (10.1-14.3) gm/dl Hct 26.8 L (30.3-42.9) % MCH 27 L (28-32) pg RDW 15.5 H (13.2-15.2) % Seg Neutrophils % 73.9 H (40.0-70.0) %
[2016-11-13 08:51] LABS: HIV-1 Antigen p24 Non React (Non React); HIVR-1/2 Ab Non React (Non React)
[2016-11-13 09:26] LABS: Hematocrit 25.6 % (30.3-42.9); Hemoglobin 8.3 gm/dl (10.1-14.3)
[2016-11-13] MEDS: FEOSOL PO SCH (12:29)
[2016-11-13] MEDS: NORCO 5/325 PO PRN (14:02)
[2016-11-14] MEDS: MOTRIN PO SCH ×4 (00:15→18:19)
[2016-11-14] MEDS: NORCO 5/325 PO PRN ×2 (06:27→18:20)
--- NOTE | 2016-11-14 08:34 | Progress Note ---
Assessment and Plan - Patient Problems (1) No care in current Current Visit: No Status: Acute Qualifiers: Trimester: third trimester Qualified Code(s): O09.33 - Supervision of with insufficient care, third trimester Plan to address problem: patient and infant will be observed for 48 hrs secondary to unknown GBS status discharge home once meet criteria Subjective - Subjective Date of service: 11/14/16 Principal diagnosis: s/p at term, no care Interval history: Patient complains of some discomfort in her right eye. Denies any vision changing or swelling. Lochia is improving. Patient reports: appetite normal, voiding normally, pain well controlled : doing well Objective - Vital Signs Latest vital signs: Vital Signs Temp Pulse Resp BP 11/14/16 00:55 98 F 82 16 117/54 11/13/16 16:00 98.1 F 59 L 16 95/52 11/13/16 14:02 20 Intake and Output 11/13/16 11/14/16 11/14/16 22:59 06:59 14:59 Intake Total 360 240 Balance 360 240 Intake: Oral 360 240 Other: Total, Intake Amount 240 240 # Voids Void 1 1 - Exam Abdomen: Present: normal appearance Uterus: Present: normal, firm - Labs Labs: Abnormal lab results 11/13/16 Range/Units 09:01 Hgb 8.3 L (10.1-14.3) gm/dl Hct 25.6 L (30.3-42.9) %
--- NOTE | 2016-11-14 08:38 | Discharge Summary ---
Providers - Providers Date of Admission: 11/12/16 18:07 Date of discharge: 11/14/16 Attending physician: JOSELINE SEWELL Primary care physician: WASTE MINIMIZATION TECHNICIAN Hospitalization Reason for admission: active labor, other (No care) Delivery: Discharge diagnosis: IUP at term delivered [place] baby: female Hospital course: Patient admitted in active labor. No care. patient had a . Unknown GBS status. Patient and monitored for 48 hrs. Condition at discharge: Good Disposition: DISCHARGED TO HOME OR SELFCARE - Discharge Diagnoses (1) No care in current Status: Acute Qualifiers: Trimester: third trimester Qualified Code(s): O09.33 - Supervision of with insufficient care, third trimester Plan - Discharge Medications Prescriptions: RX: Ferrous Sulfate [Feosol 325 MG tab] 325 mg PO BID #60 tablet Ibuprofen [Motrin] 600 mg PO Q6H PRN #30 tablet PRN Reason: Pain Vit-Fe Fumar-FA [ Vitamin] 1 tab PO QDAY #30 tablet - Provider Discharge Summary Activity: no sex for 6 weeks, no heavy lifting 4 weeks, no strenuous exercise Diet: routine Instructions: routine Additional instructions: [] Smoking cessation referral if applicable(refer to patient education folder for contact #) [] Refer to [facility] Booklet Call your doctor immediately for: * Fever > 100.5 * Heavy vaginal bleeding ( >1 pad per hour) * Severe persistent headache * Shortness of breath * Reddened, hot, painful area to leg or breast * Drainage or odor from incision. * Keep incision clean and dry at all times and follow doctor's instructions regarding bathing/showering followup at [facility] to schedule tubal ligation schedule followup in [address] [place] [phone]
[2016-11-14] MEDS ORDERED: DEPO-PROVERA (CONTRACEPTION) IM ONE (09:00)
[2016-11-14] MEDS: FEOSOL PO SCH (10:09)
[2016-11-14] MEDS: COLACE PO SCH (10:10)
[2016-11-14 17:13] VITALS: BP 100/60
--- NOTE | 2016-11-14 20:09 | Event Note ---
Date: 11/14/16 On-call MD called by RN secondary to pt complaint of right eye pain since last night that improves with pain medication. She denies any change in vision. Pt instructed to follow up with opthamologist as needed and in the office next week.
== END 2016-11-14 22:50 | disposition home or self-care (01) | DRG 775 ==
LOC: TRG 17:51 → LD 18:07 → OB 21:48
PROVIDERS: ADMIT Obstetrics & Gynecology; ATTEND Obstetrics & Gynecology
PROC: 10E0XZZ Delivery of Products of Conception, External Approach (ICD-10-PCS; principal; 2016-11-12)
DX: O99.02 Anemia complicating childbirth (principal); O70.0 First degree perineal laceration during delivery; Z3A.39 39 weeks gestation of pregnancy; Z37.0 Single live birth; O09.33 Supervision of pregnancy with insufficient antenatal care, third trimester; H57.11 Ocular pain, right eye; O99.89 Other specified diseases and conditions complicating pregnancy, childbirth and the puerperium
CPT/HCPCS: 36415; 80307; 85014; 85018; 85025; 85660; 86592; 86706; 86762; 86803; 86850; 86900; 86901; 87806; J0290; J0595; J1050; J2590; J7120

== ENCOUNTER 2016-11-16 07:17 | Emergency (ER) | payer MEDICAID ==
[2016-11-16 07:25] VITALS: BP 111/72
--- NOTE | 2016-11-16 07:45 | Emergency Department Report ---
HPI - General Chief Complaint: Eye Problems Time Seen by Provider: 11/16/16 07:29 - HPI HPI: 26-year-old female presents today with right eye swelling and pain 4 days. Patient states that the pain is mostly towards the inside of her eyelid. Denies eye redness or tearing. Positive for minimally blurred vision. Denies fever, chills, nausea, vomiting, chest pain, shortness of breath, cold or cough symptoms. Patient states she had a vaginal delivery 5 days ago. ED Past Medical Hx - Past Medical History Previous Medical History?: Yes Hx Hypertension: No Hx Congestive Heart Failure: No Hx Diabetes: No Hx Deep Vein Thrombosis: No Hx Renal Disease: No Hx Sickle Cell Disease: No Hx Seizures: No Hx Asthma: No Hx COPD: No Hx HIV: No Additional medical history: bld transfusion after last delivery, Vaginal delivery 11-12-2016 - Surgical History Past Surgical History?: No - Social History Smoking Status: Never Smoker Substance Use Type: Prescribed - Medications Home Medications: Home Medications Medication Instructions Recorded Confirmed Last Taken Type Erythromycin [Erythromycin Ophth 10 applic OP BID #1 tube 11/16/16 Unknown Rx Oint] Naproxen [Naprosyn] 500 mg PO BID #20 tablet 11/16/16 Unknown Rx ED Review of Systems ROS: Stated complaint: RT EYE SWOLLEN W/PAIN Other details as noted in HPI Constitutional: denies: chills, fever, malaise Eyes: eye pain, vision change. denies: eye discharge ENT: denies: ear pain, throat pain, congestion Respiratory: denies: cough, shortness of breath, wheezing Cardiovascular: denies: chest pain, palpitations Endocrine: no symptoms reported Gastrointestinal: denies: abdominal pain, nausea, vomiting Skin: denies: rash Neurological: denies: headache, weakness Physical Exam - Physical Exam Vital Signs: Vital Signs 11/16/16 07:22 Temperature 98.4 F Pulse Rate 64 Respiratory 18 Rate Blood Pressure 111/72 O2 Sat by Pulse 100 Oximetry Physical Exam: GENERAL: The patient is well-developed and well-nourished. Patient is in NAD. HEAD: Normocephalic. Atraumatic. EYES: Extraocular motions are intact, PERRL. No conjunctival injection noted. Hordeolum of right upper eyelid towards the inner canthus noted. Positive for tenderness to palpation. No drainage or bleeding noted. NOSE: Normal nasal mucosa with no nasal discharge. THROAT: No erythema, swelling or exudates. NECK: Supple, nontender, without lymphadenopathy. CHEST/LUNGS: Clear to auscultation throughout. HEART/CARDIOVASCULAR: Regular rate and rhythm. No murmurs, rubs or gallops. EXTREMITIES: Peripheral pulses intact. Capillary refill less than 2 seconds. NEURO: Alert and oriented x 3. Normal gait. ED Course Vital Signs 11/16/16 07:22 Temperature 98.4 F Pulse Rate 64 Respiratory 18 Rate Blood Pressure 111/72 O2 Sat by Pulse 100 Oximetry ED Medical Decision Making - Lab Data Vital Signs 11/16/16 07:22 Temperature 98.4 F Pulse Rate 64 Respiratory 18 Rate Blood Pressure 111/72 O2 Sat by Pulse 100 Oximetry VISUAL ACUITY R 20/50 L 20/20 B 20/20 - Medical Decision Making 26-year-old female presents today with a hordeolum of her right upper eyelid. Patient will be sent home on erythromycin ophthalmic ointment and naprosyn. She has been provided with referral for shipping and receiving assistant to follow up with. Patient is in no acute distress at this time. She will be discharged home and is encouraged to follow up with a primary care provider. She is encouraged to return to the emergency room for any worsening symptoms. Critical care attestation.: If time is entered above; I have spent that time in minutes in the direct care of this critically ill patient, excluding procedure time. ED Disposition Clinical Impression: Hordeolum Qualifiers: Hordeolum type: externum Laterality: right Eyelid: upper Qualified Code(s): H00.011 - Hordeolum externum right upper eyelid Disposition: DISCHARGED TO HOME OR SELFCARE Is pt being admited?: No Does the pt Need Aspirin: No Condition: Stable Instructions: Malika (ED) Additional Instructions: Follow up with primary care provider. Return to the emergency department if symptoms worsen. Prescriptions: Erythromycin [Erythromycin Ophth Oint] 10 applic OP BID #1 tube Naproxen [Naprosyn] 500 mg PO BID #20 tablet Referrals: ALBERT KRAMER MD [Staff Physician] - 3-5 Days Forms: Work/School Release Form(ED) Time of Disposition: 07:48
== END 2016-11-16 07:59 | disposition home or self-care (01) ==
LOC: ED 07:17
DX: H00.011 Hordeolum externum right upper eyelid (principal)
CPT/HCPCS: 99282